=== PATIENT | female | born 1985 | race Caucasian/White ===

== ENCOUNTER → 2016-12-05 | Day surgery (SDC) | payer MEDICARE ==
[~2016-12-05] VITALS: Ht 175.3 cm; Wt 67.6 kg
[~2016-12-05] MED LIST: CYMBALTA30 MG PO; NORCO 5-325 TA1 EACH PO; NORCO 7.5-3251 EACH PO; PLAQUENIL 200200 MG PO; PLAQUENIL200 MG PO
== END | disposition home or self-care (01) ==
LOC: OR 12:03
PROVIDERS: Orthopaedic Surgery
PROC: 0XP60JZ Removal of Synthetic Substitute from Right Upper Extremity, Open Approach (ICD-10-PCS; principal; 2016-12-05 15:00)
DX: S63.266D Dislocation of metacarpophalangeal joint of right little finger, subsequent encounter (principal); S63.264D Dislocation of metacarpophalangeal joint of right ring finger, subsequent encounter; S62.141D Displaced fracture of body of hamate [unciform] bone, right wrist, subsequent encounter for fracture with routine healing; M19.90 Unspecified osteoarthritis, unspecified site; F17.210 Nicotine dependence, cigarettes, uncomplicated; Z90.89 Acquired absence of other organs; Z79.899 Other long term (current) drug therapy; Z80.3 Family history of malignant neoplasm of breast; Z80.42 Family history of malignant neoplasm of prostate; X58.XXXD Exposure to other specified factors, subsequent encounter
CPT/HCPCS: 36415; 84703; J0690; J2250; J2405; J7120

== ENCOUNTER → 2017-01-12 | Outpatient (CLI) | payer MEDICARE | LOC: US 14:41 | DX: N64.4 Mastodynia (principal) | CPT/HCPCS: 76641-LT; 76641-RT ==

== ENCOUNTER → 2021-03-01 | Outpatient (CLI) | payer OTHER | LOC: WCC 10:15 | DX: S41.102A Unspecified open wound of left upper arm, initial encounter (principal); L03.114 Cellulitis of left upper limb; F90.2 Attention-deficit hyperactivity disorder, combined type; F31.9 Bipolar disorder, unspecified; F41.9 Anxiety disorder, unspecified; M32.9 Systemic lupus erythematosus, unspecified; M06.9 Rheumatoid arthritis, unspecified; F17.210 Nicotine dependence, cigarettes, uncomplicated; Z79.891 Long term (current) use of opiate analgesic; Z79.899 Other long term (current) drug therapy; X58.XXXA Exposure to other specified factors, initial encounter | CPT/HCPCS: G0463 ==